=== PATIENT | male | born 1950 | race Caucasian/White ===

== ENCOUNTER 2023-12-27 05:42 | Inpatient (IN) | payer MEDICARE ==
[~2023-12-27] VITALS: Ht 175.3 cm; Wt 98.0 kg
--- NOTE | 2023-12-27 06:00 | NUR ---
management coordinator notes Pt arrived at the unit accompanied by Pt's . Pt is alert and orientedX4. Pt speaks [place] and able to make needs known. 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 biopsy neoplasms and bone and remove foreign body, open reduction internal fixation with bone grafts with Dr. Smith. Consent is signed by Pt. Pt's belonging was given to Pt's . Inserted IV at RFA# 20 with good blood returned. Reorient Pt to the room and the use of call light. Pt verbalized understanding. safety precautions is maintained. will endorse to am nurse.
[2023-12-27 06:30] VITALS: BP 112/80; TEMP 98.4; O2SAT 93
[2023-12-27] MEDS ORDERED: FENTANYL PF 250MCG/5ML AMPUL ONE (06:53)
[2023-12-27] MEDS ORDERED: KETAMINE HCL (500MG/10ML) 50 MG/ML VIAL ONE (06:53)
[2023-12-27] MEDS ORDERED: SUCCINYLCHOLINE CHLORIDE 20 MG/ML VIAL ONE (06:54)
[2023-12-27] MEDS ORDERED: ROCURONIUM BROMIDE 50 MG/5 ML ONE (06:54)
[2023-12-27] MEDS ORDERED: dexaMETHasone SOD PHOSPHATE 0 ML ONE (06:57)
[2023-12-27] MEDS ORDERED: LIDOCAINE 2%-EPI 1:100,000 30 ML VIAL ONE (06:57)
[2023-12-27] MEDS ORDERED: VANCOMYCIN 1 GM VIAL ONE (06:57)
[2023-12-27] MEDS ORDERED: ANESTHESIA TRAY IN PYXIS 1 EA TRAY MC ONE (06:57)
[2023-12-27] MEDS ORDERED: dexaMETHasone SOD PHOSPHATE 1 ML ONE ×2 (06:58→07:09)
--- NOTE | 2023-12-27 07:00 | NUR ---
RN notes Pt picked up by OR nurse Wale paiz RN accompanied by OR ignacia and Pt's . will endorse to am nurse.
--- NOTE | 2023-12-27 07:00 | NUR ---
left for or via bed.no complaints.
[2023-12-27] MEDS ORDERED: GLYCOPYRROLATE 0.2 MG/ML VIAL ONE (07:09)
[2023-12-27] MEDS ORDERED: VANCOMYCIN 1 GM in IV D5W 250ml IV ONE (07:30)
[2023-12-27 07:41] LABS: BASOPHILS % (AUTO) 0.5 % (0.0-2.0); EOSINOPHILS # (AUTO) 0.2 K/uL (0.0-0.7); EOSINOPHILS % (AUTO) 2.5 % (0.0-6.0); HEMATOCRIT 44 % (39-51); HEMOGLOBIN 14.1 g/dL (13.5-17.5); LYMPHOCYTES # (AUTO) 1.8 K/uL (0.8-4.8); LYMPHOCYTES % (AUTO) 27.4 % (20.0-44.0); MEAN CORPUSCULAR HEMOGLOBIN 29 PG (26.0-33.0); MEAN CORPUSCULAR HGB CONC 32 g/dl (31.0-36.0); MEAN CORPUSCULAR VOLUME 90 fL (80-96); MONOCYTES # (AUTO) 0.5 K/uL (0.1-1.30); MONOCYTES % (AUTO) 7.7 % (2.0-12.0); NEUTROPHILS % (AUTO) 61.9 % (43.0-81.0); PLATELET COUNT (AUTO) 180 K/uL (150-450); RED BLOOD CELL COUNT(AUTO) 4.87 MIL/uL (4.5-6.0); RED CELL DISTRIBUTION WIDTH 13.3 % (11.5-15.0); WHITE BLOOD COUNT (AUTO) 6.5 K/uL (4.3-11.0)
[2023-12-27 08:03] LABS: CALCIUM, SERUM 9.1 mg/dL (8.5-10.1); CARBON DIOXIDE 25 mmol/L (21-32); CHLORIDE 105 mmol/L (98-107); CREATININE 1.2 mg/dL (0.6-1.3); GLUCOSE 140 mg/dL (74-106); POTASSIUM 3.9 mmol/L (3.5-5.1); SODIUM SERUM 139 mmol/L (136-145); UREA NITROGEN, BLOOD 21 mg/dL (7-18)
[2023-12-27] MEDS ORDERED: OXYMETAZOLINE HCL NASAL SPRAY 30 ML BOTTLE NS ONE (08:03)
[2023-12-27 08:16] LABS: ALANINE AMINOTRANSFERASE 53 U/L (12-78); ALBUMIN 3.7 g/dL (3.4-5.0); ALKALINE PHOSPHATASE 58 U/L (46-116); ASPARTATE AMINOTRANSFERASE 31 U/L (15-37); BILIRUBIN,TOTAL 0.7 mg/dL (0.2-1.0); TOTAL PROTEIN, SERUM 6.6 g/dL (6.4-8.2)
[2023-12-27] MEDS ORDERED: Z GUARD REMEDY 4 OZ OINT TP PRN (08:30)
[2023-12-27] MEDS ORDERED: MAG HYDROX/AL HYDROX/SIMETH 30 ML UDC PO PRN (08:30)
[2023-12-27] MEDS ORDERED: ACETAMINOPHEN 325 MG TABLET PO PRN (08:30)
[2023-12-27] MEDS ORDERED: ZOLPIDEM TARTRATE 5 MG TABLET PO PRN (08:30)
[2023-12-27] MEDS ORDERED: MAGNESIUM HYDROXIDE 30 ML UDC PO PRN (08:30)
[2023-12-27] MEDS ORDERED: ONDANSETRON HCL/PF 4 MG/2 ML VIAL IVP PRN (08:30)
[2023-12-27] MEDS ORDERED: TADA5TAB2 PO (11:07)
[2023-12-27] MEDS ORDERED: TAMS-12 PO (11:07)
[2023-12-27] MEDS ORDERED: METF-442 PO (11:07)
[2023-12-27] MEDS ORDERED: EDARBYCLOR PO (11:07)
[2023-12-27] MEDS ORDERED: ACAR100T2 PO (11:07)
[2023-12-27] MEDS ORDERED: ATOR10TA PO (11:07)
[2023-12-27] MEDS ORDERED: GLIP5TAB13 PO (11:07)
[2023-12-27] MEDS ORDERED: ASPI-1169 PO (11:07)
--- NOTE | 2023-12-27 11:25 | NUR ---
pt. returned to rm. from or.vitals stable. ice pack to neck.iv infusing.drowsy. at bedside.given call light and urinal.
[2023-12-27] MEDS ORDERED: HYDROMORPHONE 1 MG/1 ML DISP.SYRIN IV PRN (11:30)
[2023-12-27] MEDS: IV NS 0.9% 1,000 ML IV PRN (12:04)
--- NOTE | 2023-12-27 12:30 | NUR ---
instructed to use urinal,states he will walk to bathrm.
--- NOTE | 2023-12-27 12:40 | NUR ---
with pt.rn walking in to . find pt. sitting in chair at bedside.handling ice chips and pudding,but not eating solid foods on lunch tray.vitals stable,but small bloody nose.pt. refusing dvt pump use.voide good amt.walked self to bathrm. observing.denies nausea or swallowing of blood.
[2023-12-27] MEDS ORDERED: DEXTROSE 50%-WATER 50 ML DISP.SYRIN IV PRN (13:30)
[2023-12-27] MEDS ORDERED: *INSULIN REGULAR(HUMULIN R)HUM 100 UNIT/ML VIAL SQ PRN (13:30)
[2023-12-27] MEDS ORDERED: INSULIN REGULAR, HUMAN 100 UNIT/ML 3 ML VIAL SQ PRN (13:30)
--- NOTE | 2023-12-27 13:30 | NUR ---
after nurse about going home.
--- NOTE | 2023-12-27 14:30 | NUR ---
refused use of dvt pumps.
--- NOTE | 2023-12-27 14:54 | NUR ---
call out to dr. persaud and dr. owens for dc order.informed both regarding sm. bloody nose.both ok'd dischargr.pt. has rxs for pain and antibiotic at his pharmacy.informed that pt. did have iv antibiotic in surgery.
--- NOTE | 2023-12-27 15:10 | NUR ---
dr. ayala in to see pt.has hx of sleep apnea.dr. ayala advised pt. to go back to his med that ordered c-pap or to come see him.pt, given dr. ayala's number.
--- NOTE | 2023-12-27 15:15 | NUR ---
pox checked when off 02 and 90%.dr. ayala aware.pt. does have c-pap at home.
[2023-12-27 16:00] VITALS: BP 121/60; TEMP 98.4; O2SAT 95
--- NOTE | 2023-12-27 16:00 | NUR ---
given dc instructions and all paperwork.hep lock out.to follow up with dentist and medical dr. taken via w/c to lobby for dc accompanied by load tallier and .
[2023-12-27] MEDS ORDERED: METFORMIN 500 MG TABLET PO SCH (17:00)
[2023-12-27] MEDS ORDERED: BLOOD SUGAR DIAGNOSTIC 1 EACH STRIP VI SCH (17:30)
[2023-12-28] MEDS ORDERED: PANTOPRAZOLE 40 MG TABLET.DR PO SCH (07:30)
[2023-12-28] MEDS ORDERED: ATORVASTATIN 10 MG TABLET PO SCH (09:00)
[2023-12-28] MEDS ORDERED: TAMSULOSIN 0.4 MG CAP.SR.24H PO SCH (09:00)
[2023-12-28] MEDS ORDERED: Medication Not On Formulary EA (Tadalafil (Cialis) 5 MG) PO SCH (09:00)
[2023-12-28] MEDS ORDERED: Medication Not On Formulary EA ([Edarbyclor] 1 TAB) PO SCH (09:00)
[2023-12-28] MEDS ORDERED: ACARBOSE 50 MG TABLET PO SCH (14:00)
== END 2023-12-27 16:04 | disposition home or self-care (01) | DRG 516 ==
LOC: DS 05:42 → MED 05:50
PROVIDERS: ADMIT Student in an Organized Health Care Education/Training Program; ATTEND Student in an Organized Health Care Education/Training Program
PROC: 0NBV0ZZ Excision of Left Mandible, Open Approach (ICD-10-PCS; principal; 2023-12-27)
PROC: 0NBT0ZZ Excision of Right Mandible, Open Approach (ICD-10-PCS; 2023-12-27)
PROC: 0NUV07Z Supplement Left Mandible with Autologous Tissue Substitute, Open Approach (ICD-10-PCS; 2023-12-27)
PROC: 0NUT07Z Supplement Right Mandible with Autologous Tissue Substitute, Open Approach (ICD-10-PCS; 2023-12-27)
PROC: 0NSV04Z Reposition Left Mandible with Internal Fixation Device, Open Approach (ICD-10-PCS; 2023-12-27)
PROC: 0NST04Z Reposition Right Mandible with Internal Fixation Device, Open Approach (ICD-10-PCS; 2023-12-27)
DX: S02.69XK Fracture of mandible of other specified site, subsequent encounter for fracture with nonunion (principal); D68.59 Other primary thrombophilia; T81.83XA Persistent postprocedural fistula, initial encounter; M27.2 Inflammatory conditions of jaws; D16.4 Benign neoplasm of bones of skull and face; M27.49 Other cysts of jaw; E11.9 Type 2 diabetes mellitus without complications; E66.9 Obesity, unspecified; E78.5 Hyperlipidemia, unspecified; E86.0 Dehydration; G47.33 Obstructive sleep apnea (adult) (pediatric); I10 Essential (primary) hypertension; I25.10 Atherosclerotic heart disease of native coronary artery without angina pectoris; I48.91 Unspecified atrial fibrillation; Z87.891 Personal history of nicotine dependence; Z68.31 Body mass index [BMI] 31.0-31.9, adult; Z79.84 Long term (current) use of oral hypoglycemic drugs; X58.XXXD Exposure to other specified factors, subsequent encounter
CPT/HCPCS: 36415; 80053-TC; 82962-TC; 85025-TC; 87081-TC; 88305-TC; 88311-TC; 88312-TC; A4223; A4338; C1713; G0378; J0330; J1100; J1815; J2405; J2704; J3010; J3370; J3490; J7030; J7060

== ENCOUNTER 2024-10-16 07:31 | Inpatient (IN) | payer MEDICARE ==
[~2024-10-16] VITALS: Ht 175.3 cm; Wt 97.5 kg
[~2024-10-16 07:31] MED LIST: ACAR100T2 PO; ASPI-1169 PO; ATOR10TA PO; EDARBYCLOR PO; GLIP5TAB13 PO; METF-442 PO; TADA5TAB2 PO; TAMS-12 PO
[2024-10-16] MEDS ORDERED: LIDOCAINE 2%-EPI 1:100,000 30 ML VIAL ONE (08:54)
[2024-10-16] MEDS ORDERED: VANCOMYCIN 1 GM VIAL ONE (08:54)
[2024-10-16] MEDS ORDERED: dexaMETHasone SOD PHOSPHATE 1 ML ONE (08:54)
[2024-10-16] MEDS ORDERED: FENTANYL PF 250MCG/5ML AMPUL ONE (09:11)
[2024-10-16] MEDS ORDERED: SEVOFLURANE 250 ML BOTTLE IH ONE (09:32)
[2024-10-16] MEDS ORDERED: MAG HYDROX/AL HYDROX/SIMETH 30 ML UDC PO PRN (14:00)
[2024-10-16] MEDS ORDERED: Z GUARD REMEDY 4 OZ OINT TP PRN (14:00)
[2024-10-16] MEDS ORDERED: MAGNESIUM HYDROXIDE 30 ML UDC PO PRN (14:00)
[2024-10-16] MEDS ORDERED: HYDROCODONE/APAP 10/325MG TABLET PO PRN (14:00)
[2024-10-16] MEDS ORDERED: ACETAMINOPHEN 325 MG TABLET PO PRN (14:00)
[2024-10-16] MEDS ORDERED: ONDANSETRON HCL/PF 4 MG/2 ML VIAL IVP PRN (14:00)
[2024-10-16] MEDS: IV NS 0.9% 1,000 ML IV PRN (14:24)
[2024-10-16 16:00] VITALS: BP 136/84; TEMP 97.9; O2SAT 97
[2024-10-16] MEDS ORDERED: METFORMIN 500 MG TABLET PO SCH (17:00)
[2024-10-16] MEDS: HYDROMORPHONE 1 MG/1 ML DISP.SYRIN IV PRN (17:19)
[2024-10-16] MEDS ORDERED: VANCOMYCIN 1 GM in IV D5W 250ml IV SCH (21:00)
[2024-10-17] MEDS ORDERED: TAMSULOSIN 0.4 MG CAP.SR.24H PO SCH (09:00)
[2024-10-17] MEDS ORDERED: ASPIRIN 81 MG TAB.CHEW PO SCH (09:00)
[2024-10-17] MEDS ORDERED: glipiZIDE 5 MG TABLET PO SCH (09:00)
[2024-10-17] MEDS ORDERED: ACARBOSE 50 MG TABLET PO SCH (09:00)
[2024-10-17] MEDS ORDERED: ATORVASTATIN 10 MG TABLET PO SCH (09:00)
[2024-10-17] MEDS ORDERED: Medication Not On Formulary EA (Tadalafil (Cialis) 5 MG) PO SCH (09:00)
[2024-10-17] MEDS ORDERED: Medication Not On Formulary EA ([Edarbyclor] 1 TAB) PO SCH (09:00)
== END 2024-10-16 19:20 | disposition left against medical advice (07) | DRG 908 ==
LOC: DS 07:31 → MED 12:43
PROVIDERS: ADMIT Nurse Practitioner Acute Care; ATTEND Nurse Practitioner Acute Care
PROC: 0NPW07Z Removal of Autologous Tissue Substitute from Facial Bone, Open Approach (ICD-10-PCS; principal; 2024-10-16 09:00)
PROC: 0NST04Z Reposition Right Mandible with Internal Fixation Device, Open Approach (ICD-10-PCS; principal; 2024-10-16 09:00)
PROC: 0N5T0ZZ Destruction of Right Mandible, Open Approach (ICD-10-PCS; principal; 2024-10-16 09:00)
PROC: 0N5V0ZZ Destruction of Left Mandible, Open Approach (ICD-10-PCS; principal; 2024-10-16 09:00)
PROC: 0NSV04Z Reposition Left Mandible with Internal Fixation Device, Open Approach (ICD-10-PCS; principal; 2024-10-16 09:00)
PROC: 0NUV07Z Supplement Left Mandible with Autologous Tissue Substitute, Open Approach (ICD-10-PCS; principal; 2024-10-16 09:00)
PROC: 0NUT07Z Supplement Right Mandible with Autologous Tissue Substitute, Open Approach (ICD-10-PCS; principal; 2024-10-16 09:00)
DX: T86.831 Bone graft failure (principal); S02.609K Fracture of mandible, unspecified, subsequent encounter for fracture with nonunion; Y83.2 Surgical operation with anastomosis, bypass or graft as the cause of abnormal reaction of the patient, or of later complication, without mention of misadventure at the time of the procedure; Y92.89 Other specified places as the place of occurrence of the external cause; M85.60 Other cyst of bone, unspecified site; D16.5 Benign neoplasm of lower jaw bone; M60.9 Myositis, unspecified; I25.10 Atherosclerotic heart disease of native coronary artery without angina pectoris; I10 Essential (primary) hypertension; E78.5 Hyperlipidemia, unspecified; N40.0 Benign prostatic hyperplasia without lower urinary tract symptoms; Z68.31 Body mass index [BMI] 31.0-31.9, adult; E66.9 Obesity, unspecified; E11.9 Type 2 diabetes mellitus without complications
CPT/HCPCS: 82962-TC; 88305-TC; 88311-TC; G0378; J0690; J1100; J1171; J2704; J3010; J3370; J3490; J7030; J7060